=== PATIENT | female | born 1985 | race Caucasian/White ===

== ENCOUNTER 2025-08-18 09:05 | Outpatient (CLI) | payer BC, SELFPAY ==
[2025-08-18 14:49] LABS: Bacterial Vaginosis* Negative (Negative); Candida glab/krus NOT DETECTED (No Detected)
== END 2025-08-18 09:06 | disposition home or self-care (01) ==
LOC: NFLDREF 09:05
PROVIDERS: Visit Provider Registered Nurse
DX: N89.8 Other specified noninflammatory disorders of vagina (principal); R39.9 Unspecified symptoms and signs involving the genitourinary system
CPT/HCPCS: 81513; 87086; 87481; 87661